=== PATIENT | male | born 2000 | race African-American/Black ===

== ENCOUNTER 2021-04-05 23:27 | Emergency (ER) | payer SELFPAY ==
[~2021-04-05] VITALS: Ht 182.9 cm; Wt 91.2 kg
[2021-04-06] MEDS ORDERED: LIDOCAINE HCL/PF 1% 10 MG/ML 5ML VIAL INFIL ONE (01:30)
[2021-04-06 02:00] VITALS: BP 128/82
== END 2021-04-06 02:10 | disposition home or self-care (01) ==
LOC: ER 23:27
DX: T16.1XXA Foreign body in right ear, initial encounter (principal); X58.XXXA Exposure to other specified factors, initial encounter; Y93.89 Activity, other specified; Y92.89 Other specified places as the place of occurrence of the external cause; Y99.8 Other external cause status
CPT/HCPCS: 69200; 99284